=== PATIENT | female | born 1990 | race Caucasian/White ===

== ENCOUNTER 2020-09-22 18:54 | Inpatient (IN) | payer OTHER, SELFPAY ==
[~2020-09-22] VITALS: Ht 170.2 cm; Wt 75.7 kg
[2020-09-22 19:23] VITALS: BP 119/78
[2020-09-22] MEDS ORDERED: METHYLERGONOVINE 0.2 MG/ML AMP IM PRN (21:10)
[2020-09-22] MEDS ORDERED: NALBUPHINE 10 MG/ML AMP IVP PRN (21:10)
[2020-09-22] MEDS ORDERED: OXYTOCIN 20 UNITS in LACTATED RINGERS 1,000 ML IV SCH (21:10)
[2020-09-22 22:06] LABS: BASOPHILS # (AUTO) 0.1 K/uL (0.00-0.22); BASOPHILS % (AUTO) 0.8 % (0.0-2.0); EOSINOPHILS # (AUTO) 0.1 K/uL (0-0.4); EOSINOPHILS % (AUTO) 0.6 % (0.0-4.0); HEMATOCRIT 39.3 % (36-48); HEMOGLOBIN 13.2 g/dL (12.0-16.0); LYMPHOCYTES % (AUTO) 23.5 % (20.5-51.1); MEAN CORPUSCULAR HEMOGLOBIN 30 pg (27-31); MEAN CORPUSCULAR HGB CONC 34 g/dL (33-37); MEAN CORPUSCULAR VOLUME 90.6 fL (80-94); MONOCYTES # (AUTO) 0.9 K/uL (0.8-1.0); MONOCYTES % (AUTO) 5.1 % (1.7-9.3); NEUTROPHILS # (AUTO) 11.8 K/uL (1.8-7.7); PLATELET COUNT (AUTO) 193 K/uL (140-450); RED BLOOD CELL COUNT(AUTO) 4.34 MIL/uL (4.20-5.40); RED CELL DISTRIBUTION WIDTH 13.5 % (11.6-13.7); WHITE BLOOD COUNT (AUTO) 16.9 K/uL (4.8-10.8)
[2020-09-22 22:15] LABS: APPEARANCE,URINE CLEAR (CLEAR); BILIRUBIN,URINE NEGATIVE (NEGATIVE); BLOOD, URINE NEGATIVE (NEGATIVE); COLOR,URINE YELLOW (YELLOW); LEUKOCYTE ESTERASE ,URINE NEGATIVE (NEGATIVE); NITRITE, URINE NEGATIVE (NEGATIVE); UGLUCOSE NEGATIVE (NEGATIVE)
[2020-09-22 22:25] LABS: PROTHROMBIN TIME 8.9 secs (10.8-13.4)
[2020-09-22 22:28] LABS: BARBITURATE, URINE NEGATIVE ng/ml (NEG <=200); BENZODIAZEPINE, URINE NEGATIVE ng/mL (NEG <=200); CANNABINOID, URINE NEGATIVE ng/mL (NEG <=50); COCAINE, URINE NEGATIVE ng/mL (NEG <=300); OPIATE, URINE NEGATIVE ng/mL (NEG <=2000); PHENCYCLIDINE SCREEN,URINE NEGATIVE ng/mL (NEG <=25)
[2020-09-22] MEDS: LACTATED RINGERS 1,000 ML IV SCH (22:30)
[2020-09-22] MEDS: MISOPROSTOL 25 MCG TAB VG SCH (23:09)
[2020-09-22 23:15] LABS: ALBUMIN 2.7 g/dL (3.4-5.0); ANION GAP 13.2 (8-16); CARBON DIOXIDE 21.6 mmol/L (21-32); CREATININE 0.7 mg/dL (0.6-1.3); POTASSIUM 3.8 mmol/L (3.5-5.1); TOTAL BILIRUBIN 0.2 mg/dL (0.0-1.0)
[2020-09-23] MEDS ORDERED: ONDANSETRON 4 MG/2 ML VIAL IVP PRN (00:45)
[2020-09-23] MEDS ORDERED: HYDROmorphone 1 MG/ML AMP IVP PRN (00:45)
[2020-09-23] MEDS: MISOPROSTOL 25 MCG TAB VG SCH (05:09)
[2020-09-23] MEDS: LACTATED RINGERS 1,000 ML IV SCH ×2 (05:24→20:37)
--- NOTE | 2020-09-23 08:17 | NUR ---
PATIENT HAS BEEN SCREENED AND CATEGORIZED LOW NUTRITION RISK. PATIENT WILL BE SEEN WITHIN 7 DAYS OF ADMISSION. 09/29/[address]
[2020-09-23] MEDS ORDERED: OXYTOCIN 20 UNITS in LACTATED RINGERS 1,000 ML IV SCH (12:35)
[2020-09-23] MEDS ORDERED: OXYTOCIN 20 UNITS/LR PREMIX 1,000 ML IV ONE (13:36)
[2020-09-23] MEDS ORDERED: HYDROmorphone PFS 2 MG/ML SYR ONE (22:22)
[2020-09-24] MEDS ORDERED: METHYLERGONOVINE 0.2 MG/ML AMP IM PRN (01:20)
[2020-09-24] MEDS ORDERED: OXYTOCIN 10 UNITS/ML VIAL IM PRN (01:20)
[2020-09-24] MEDS ORDERED: SIMETHICONE 80 MG TAB.CHEW PO PRN (01:20)
[2020-09-24] MEDS ORDERED: IBUPROFEN 800 MG TAB PO PRN (01:20)
[2020-09-24] MEDS ORDERED: MEASLES, MUMPS, AND RUBELLA 1 VIAL SQVAC ONE (01:20)
[2020-09-24] MEDS ORDERED: METHYLERGONOVINE 0.2 MG TAB PO PRN (01:20)
[2020-09-24] MEDS ORDERED: BENZOCAINE/MENTHOL 20%-0.5% 60 GM CAN TP PRN (01:20)
[2020-09-24] MEDS: bisacodyL 5 MG TABEC PO PRN (08:53)
[2020-09-24] MEDS: DOCUSATE SODIUM 100 MG GELCAP PO PRN (08:54)
[2020-09-24] MEDS: IBUPROFEN 600 MG TAB PO PRN (16:19)
[2020-09-25] MEDS: bisacodyL 5 MG TABEC PO PRN (09:00)
[2020-09-25] MEDS: DOCUSATE SODIUM 100 MG GELCAP PO PRN (09:00)
[2020-09-25] MEDS: IBUPROFEN 600 MG TAB PO PRN (19:55)
== END 2020-09-26 12:35 | disposition home or self-care (01) | DRG 807 ==
LOC: MLD 18:54 → MFCC 09-24 02:40
PROVIDERS: ADMIT Obstetrics & Gynecology; ATTEND Obstetrics & Gynecology
PROC: 10E0XZZ Delivery of Products of Conception, External Approach (ICD-10-PCS; principal; 2020-09-24)
PROC: 3E0234Z Introduction of Serum, Toxoid and Vaccine into Muscle, Percutaneous Approach (ICD-10-PCS; 2020-09-24)
PROC: 3E0134Z Introduction of Serum, Toxoid and Vaccine into Subcutaneous Tissue, Percutaneous Approach (ICD-10-PCS; 2020-09-24)
DX: O13.4 Gestational [pregnancy-induced] hypertension without significant proteinuria, complicating childbirth (principal); Z37.0 Single live birth; O69.81X0 Labor and delivery complicated by cord around neck, without compression, not applicable or unspecified; Z20.822 Contact with and (suspected) exposure to COVID-19; Z3A.37 37 weeks gestation of pregnancy; Z23 Encounter for immunization
CPT/HCPCS: 36415; 51702; 59200; 59409; 76815; 80053; 80305; 81003; 82570; 84550; 85025; 85384; 85610; 85730; 86592; 86762; 86886; 86900; 86901; 87340; J1170; J2590